=== PATIENT | female | born 1980 | race Caucasian/White ===

== ENCOUNTER 2016-10-19 00:03 | Emergency (ER) | payer OTHER ==
[~2016-10-19] VITALS: Ht 180.3 cm; Wt 113.4 kg
[~2016-10-19 00:03] MED LIST: AMOXICILLIN500 M1 OR; AMOXICILLIN500 MG PO; ANAPROX275 MG OR; AUGMENTIN875TAB PO; DAY QUIL; DENIES CURRENT MEDS; FLAGYL500 MG PO; FLEXERIL PO; FLEXERIL5 M1 PO; HYDROCO/APAP1 TA9 PO; KEFLEX250 MG PO; KEFLEX500 M1 PO; LORTAB 10 OR; LORTAB 10-325 M1 TAB PO; LORTAB 1010 MG PO; LORTAB 5 OR; LORTAB5 PO; NAPROSYN500 MG PO; NO; NO HOME MEDS; NO MEDS; PERCOCET 5/325M1 TAB OR; PERCOCET 5/325M1 TAB PO; PRENA1 CHEW 1.41 CHW PO; PRENATAL1 TA1 PO; PREVACID30 M2 PO; PREVACID30 M3 PO; ROBITUSSIN AC10 ML PO; TYLENOL # 31 TA1 PO; ULTRAM50 M1 OR; ULTRAM50 M1 PO; ZOFRAN ODT4 MG PO; ZOFRAN ODT8 MG PO
[2016-10-19 00:35] LABS: URINE BILIRUBIN - DIPSTICK NEGATIVE (NEGATIVE); URINE BLOOD DIPSTICK TRACE-INTACT (NEGATIVE); URINE CLARITY SLIGHT CLOUDY; URINE COLOR YELLOW; URINE GLUCOSE - DIPSTICK NEGATIVE (NEGATIVE); URINE KETONE NEGATIVE (NEGATIVE); URINE LEUK ESTERASE NEGATIVE (NEGATIVE); URINE NITRITE - DIPSTICK NEGATIVE (Negative); URINE PROTEIN - DIPSTICK NEGATIVE (NEG-TRACE); URINE SPECIFIC GRAVITY <=1.005; URINE UROBILINOGEN - DIPSTICK 0.2 E.U./dL (0.2)
[2016-10-19] MEDS ORDERED: LORTAB 5/3255 MG PO (00:49)
[2016-10-19] MEDS ORDERED: MACROBID100 MG PO (00:49)
[2016-10-19] MEDS ORDERED: ZOFRAN ODT4 MG PO (00:49)
[2016-10-19 01:06] VITALS: BP 126/76
== END 2016-10-19 01:06 | disposition home or self-care (01) | DRG 696 ==
LOC: ED 00:03
DX: R35.0 Frequency of micturition (principal); M54.9 Dorsalgia, unspecified; R39.15 Urgency of urination; R10.12 Left upper quadrant pain

== ENCOUNTER 2017-07-23 13:58 | Emergency (ER) | payer OTHER ==
[~2017-07-23] VITALS: Ht 180.3 cm; Wt 99.6 kg
[~2017-07-23 13:58] MED LIST changes: +LORTAB 5/3255 MG PO; +MACROBID100 MG PO
[2017-07-23] MEDS ORDERED: TORADOL PO (18:05)
[2017-07-23 18:09] VITALS: BP 122/68
== END 2017-07-23 18:10 | disposition home or self-care (01) | DRG 605 ==
LOC: ED 13:58
DX: S90.122A Contusion of left lesser toe(s) without damage to nail, initial encounter (principal); W22.03XA Walked into furniture, initial encounter; Y92.009 Unspecified place in unspecified non-institutional (private) residence as the place of occurrence of the external cause

== ENCOUNTER 2018-01-16 19:21 | Emergency (ER) | payer OTHER ==
[~2018-01-16] VITALS: Ht 180.3 cm; Wt 90.5 kg
[~2018-01-16 19:21] MED LIST changes: +TORADOL PO
[2018-01-16 19:53] LABS: HEMOGLOBIN 12.8 g/dl (12.0-16.0); IMMATURE GRANULOCYTES 0.4 % (0.0-5.0); MEAN CORPUSCULAR HGB 27.9 pG CALC (26.0-32.0); MEAN CORPUSCULAR HGB CONC 33.7 g/L CALC (32.0-36.0); NEUT# 5.22 thou/uL (2.00-7.15); RED BLOOD COUNT 4.58 mill/uL (4.20-5.60)
[2018-01-16 20:07] LABS: ALBUMIN 4.1 g/dL (3.2-5.0); ALKALINE PHOSPHATASE 59 u/l (38-126); ANION GAP 14 (6-22 (CALC)); BILIRUBIN, TOTAL 0.4 mg/dL (0.0-1.4); BUN 17 mg/dL (7-17); BUN/CREATININE RATIO 24 (12-20 (CALC)); CARBON DIOXIDE 23 mmol/l (22-30); CHLORIDE 111 mmol/l (95-108); CREATININE 0.7 mg/dL (0.5-1.0); GFR > 60 ML/MIN (>=60 (CALC)); GFR FOR AFR.AMER. > 60 ML/MIN (>=60 (CALC)); POTASSIUM 3.6 mmol/l (3.5-5.1); SGOT/AST 30 u/l (14-36); SGPT/ALT 47 u/l (9-52); SODIUM 145 mmol/l (137-146)
[2018-01-16 20:08] LABS: ETHYL ALCOHOL 0 mg/dl (0-30)
[2018-01-16 20:31] LABS: URINE BILIRUBIN - DIPSTICK NEGATIVE (NEGATIVE); URINE BLOOD DIPSTICK MODERATE (NEGATIVE); URINE CLARITY CLEAR; URINE COLOR YELLOW; URINE GLUCOSE - DIPSTICK NEGATIVE (NEGATIVE); URINE KETONE TRACE mg/dL (NEGATIVE); URINE LEUK ESTERASE NEGATIVE (NEGATIVE); URINE NITRITE - DIPSTICK NEGATIVE (Negative); URINE PROTEIN - DIPSTICK 30 mg/dL (NEG-TRACE); URINE SPECIFIC GRAVITY >=1.030; URINE UROBILINOGEN - DIPSTICK 0.2 E.U./dL (0.2)
[2018-01-16 20:35] LABS: BARBITURATES NEGATIVE (NEGATIVE); COCAINE NEGATIVE (NEGATIVE); METHADONE NEGATIVE (NEGATIVE); OXCYCODONE NEGATIVE (NEGATIVE); TETRAHYDROCANNABIONOL POSITIVE (NEGATIVE); TRICYLIC ANTIDEPRESSANTS NEGATIVE (NEGATIVE)
[2018-01-16 20:40] LABS: URINE CALCIUM OXALATE CRYSTALS FEW lpf; URINE SQUAMOUS EPITHELIAL CELL MODERATE EPI/hpf (0-FEW); URINE WBC 0-2 WBC/hpf (0-5)
[2018-01-16] MEDS ORDERED: CIPROFLOXACN500 MG PO (22:28)
[2018-01-16 23:00] VITALS: BP 121/72
== END 2018-01-17 00:01 | disposition designated cancer center or children's hospital (05) | DRG 918 ==
LOC: ED 19:21
PROVIDERS: Emergency Medicine
DX: T43.222A Poisoning by selective serotonin reuptake inhibitors, intentional self-harm, initial encounter (principal); R42 Dizziness and giddiness; F32.9 Major depressive disorder, single episode, unspecified

== ENCOUNTER → 2018-07-19 | Outpatient (REF) ==
[~2018-07-19] MED LIST changes: +CIPROFLOXACN500 MG PO
== END | disposition home or self-care (01) | DRG 316 ==
LOC: LAB 07:03
PROVIDERS: ATTEND Physician Assistant
DX: R03.0 Elevated blood-pressure reading, without diagnosis of hypertension (principal); E66.3 Overweight